=== PATIENT | female | born 1965 | race Caucasian/White ===

== ENCOUNTER 2021-06-22 12:16 | Inpatient (IN) ==
[2021-06-22] MEDS ORDERED: Naloxone 0.4 MG/ML INJ IVP PRN (21:52)
[2021-06-22] MEDS ORDERED: Ondansetron 4 MG/2 ML VIAL IVP PRN (21:52)
[2021-06-22] MEDS ORDERED: Acetaminophen 325 MG TABLET PO PRN (21:52)
[2021-06-22] MEDS ORDERED: *HR* Heparin 5,000 UNIT/ML VIAL IVP PRN ×2 (21:55)
[2021-06-22] MEDS ORDERED: Heparin 25,000UNIT/250ML 1/2NS 25,000 UNIT/250 ML IV.SOLN IVC SCH (22:00)
[2021-06-22 22:46] LABS: Hematocrit 40.9 % (35.3-44.9); Hemoglobin 13.4 g/dL (11.5-15.4); Mean Corpuscular HGB Conc 32.8 g/dL (31.6-35.5); Mean Corpuscular Hemoglobin 29.6 pg (28.0-33.3); Mean Corpuscular Volume 90.3 fL (83.0-100.0); Mean Platelet Volume 10.3 fL (9.4-12.4); Platelet Count 311 K/mcL (140-400); Red Blood Count 4.53 M/mcL (3.82-4.97); Red Cell Distribution Width 14.2 % (11.5-14.5); White Blood Count 11.4 K/mcL (4.3-11.1)
[2021-06-22 22:55] LABS: INR 1.1; Prothrombin Time 12.5 Seconds (9.4-12.1)
[2021-06-22 23:09] LABS: Alanine Aminotransferase 11 Units/L (7-52); Albumin 3.9 g/dL (3.5-5.7); Albumin/Globulin Ratio 1.1 (1.1-2.2); Alkaline Phosphatase 41 Units/L (34-104); Aspartate Amino Transferase 11 Units/L (13-39); BUN/Creatinine Ratio 16 (6-26); Bilirubin,Total 0.3 mg/dL (0.3-1.0); Blood Urea Nitrogen 11 mg/dL (6-20); Calcium 8.7 mg/dL (8.6-10.3); Carbon Dioxide 23 mEq/L (23-29); Chloride 105 mEq/L (98-107); Globulin 3.6 g/dL (2.4-3.5); Glucose 100 mg/dL (70-105); Osmolality,Calculated 287 (280-300); Potassium 3.9 mEq/L (3.5-5.1); Sodium 139 mEq/L (136-145); Total Protein 7.5 g/dL (6.4-8.9); eGFR For African Americans > 60 (> 60); eGFR For Non-African Americans > 60 (> 60)
[2021-06-23 06:25] LABS: Basophils % 0.4 %; Eosinophils # 0.2 K/mcL (0.0-0.6); Eosinophils % 1.7 %; Hemoglobin 12.8 g/dL (11.5-15.4); Immature Granulocytes % 0.3 % (0-4); Lymphocytes # 2.6 K/mcL (0.6-4.6); Lymphocytes % 23.2 %; Mean Corpuscular HGB Conc 32.8 g/dL (31.6-35.5); Mean Corpuscular Hemoglobin 29.6 pg (28.0-33.3); Mean Corpuscular Volume 90.1 fL (83.0-100.0); Mean Platelet Volume 10.6 fL (9.4-12.4); Monocytes # 0.6 K/mcL (0.0-1.3); Monocytes % 5.4 %; Neutrophils # 7.8 K/mcL (1.6-8.9); Platelet Count 305 K/mcL (140-400); Red Blood Count 4.33 M/mcL (3.82-4.97); Red Cell Distribution Width 13.9 % (11.5-14.5); White Blood Count 11.2 K/mcL (4.3-11.1)
[2021-06-23 07:01] LABS: BUN/Creatinine Ratio 18 (6-26); Blood Urea Nitrogen 11 mg/dL (6-20); Calcium 8.8 mg/dL (8.6-10.3); Carbon Dioxide 22 mEq/L (23-29); Chloride 106 mEq/L (98-107); Cholesterol 202 mg/dL (< 200); Glucose 104 mg/dL (70-105); HDL Cholesterol 29 mg/dL (40-59); Magnesium 2.1 mg/dL (1.6-2.6); Osmolality,Calculated 288 (280-300); Phosphorous 4.2 mg/dL (2.7-4.5); Potassium 4.1 mEq/L (3.5-5.1); Sodium 139 mEq/L (136-145); Triglycerides 815 mg/dL (< 150); eGFR For African Americans > 60 (> 60); eGFR For Non-African Americans > 60 (> 60)
[2021-06-23 08:13] LABS: Estimated Average Glucose 143 mg/dl; Hemoglobin A1C 6.6 %
[2021-06-23] MEDS ORDERED: Perflutren Lipid Microsphere 1.3 ML in 0.9 % Sodium Chloride 8.7 ML IVP PRN (08:50)
[2021-06-23] MEDS ORDERED: D5% in Water 1,000 ML IVC PRN (08:51)
[2021-06-23] MEDS ORDERED: *HR* Dextrose 50 % in Water (Vial) 50 ML VIAL IVP PRN (08:51)
[2021-06-23] MEDS ORDERED: Dextrose Gel 15 GM/37.5 ML TUBE PO PRN ×2 (08:51)
[2021-06-23] MEDS: Insulin LISPRO 300 UNITS/3 ML VIAL SUBQ SCH ×3 (09:26→18:48)
[2021-06-23] MEDS: Fenofibrate 54 MG TABLET PO SCH (09:41)
[2021-06-23] MEDS: Aspirin 81 MG TAB.CHEW PO SCH (09:42)
[2021-06-23] MEDS ORDERED: Nitroglycerin 0.4 MG TAB.SUBL SL PRN (10:04)
[2021-06-23] MEDS: *HR* Ticagrelor 90 MG TABLET PO SCH ×2 (10:49→20:02)
[2021-06-23] MEDS ORDERED: 0.9 % Sodium Chloride 1,000 ML ONE (13:08)
[2021-06-23] MEDS ORDERED: *HR* Midazolam HCl 2 MG/2 ML VIAL ONE ×2 (13:08→13:48)
[2021-06-23] MEDS ORDERED: *HR* FentaNYL (PF) 100 MCG/2 ML VIAL ONE ×2 (13:08→14:42)
[2021-06-23] MEDS ORDERED: *HR* Heparin 10,000 UNIT/10 ML VIAL ONE (13:09)
[2021-06-23] MEDS ORDERED: ISOVUE-370 200 ML INFUS..BTL ONE ×2 (13:09→14:11)
[2021-06-23] MEDS ORDERED: Nitroglycerin 1,000 MCG/5 ML VIAL IV ONE (13:09)
[2021-06-23] MEDS ORDERED: Heparin 1,000 UNITS/500 mL 500 ML ONE (13:09)
[2021-06-23] MEDS ORDERED: *HR* Bivalirudin 250 MG VIAL IVC ONE (14:14)
[2021-06-23] MEDS ORDERED: 0.9 % Sodium Chloride 1,000 ML IVC SCH (15:15)
[2021-06-23] MEDS ORDERED: *HR* Ticagrelor 90 MG TABLET PO ONE (15:20)
[2021-06-23] MEDS ORDERED: *HR* Ticagrelor 90 MG TABLET ONE (15:53)
[2021-06-24 03:38] LABS: BUN/Creatinine Ratio 17 (6-26); Blood Urea Nitrogen 10 mg/dL (6-20); Calcium 8.7 mg/dL (8.6-10.3); Carbon Dioxide 22 mEq/L (23-29); Chloride 107 mEq/L (98-107); Glucose 108 mg/dL (70-105); Magnesium 2.1 mg/dL (1.6-2.6); Osmolality,Calculated 286 (280-300); Sodium 138 mEq/L (136-145); eGFR For African Americans > 60 (> 60); eGFR For Non-African Americans > 60 (> 60)
[2021-06-24 04:25] VITALS: O2SAT 96
[2021-06-24 07:33] VITALS: BP 120/74; PULSE 77; TEMP 97.7
[2021-06-24] MEDS: *HR* Ticagrelor 90 MG TABLET PO SCH (08:09)
[2021-06-24] MEDS: Fenofibrate 54 MG TABLET PO SCH (08:09)
[2021-06-24] MEDS: Aspirin 81 MG TAB.CHEW PO SCH (08:09)
[2021-06-24] MEDS ORDERED: lisinopriL 10 MG TABLET PO SCH (09:00)
== END 2021-06-24 11:37 | disposition home or self-care (01) | DRG 247 ==
LOC: 3BNU → SUATTDRO 20:48
PROVIDERS: ADMIT Internal Medicine; ATTEND Internal Medicine